=== PATIENT | male | born 1990 | race Caucasian/White ===

== ENCOUNTER 2018-05-19 22:57 | Emergency (ER) | payer BC ==
[~2018-05-19] VITALS: Ht 170.2 cm; Wt 73.2 kg
[~2018-05-19 22:57] MED LIST: ALEVE220 MG PO; BACTRIM DS TAB1 EACH PO; CRANBERRY200 MG PO; LEVSIN0.125 MG SUBLING; PERCOCET PO; PHENAZOPYRIDIN200 M2 PO; SENOKOT-S1 TA1 PO
[2018-05-19] MEDS ORDERED: HUMIRA10 MG/0.1 (23:08)
[2018-05-19] MEDS ORDERED: SULFACETAMIDE 115 M1 INTRAOCULR (23:30)
[2018-05-19] MEDS ORDERED: NORCO 7.5-3251 EACH PO (23:32)
[2018-05-19 23:49] VITALS: BP 125/78
== END 2018-05-19 23:50 | disposition home or self-care (01) ==
LOC: M.ERS 22:57
DX: S05.8X2A Other injuries of left eye and orbit, initial encounter (principal); W22.8XXA Striking against or struck by other objects, initial encounter; Y92.89 Other specified places as the place of occurrence of the external cause; Y93.89 Activity, other specified; Y99.8 Other external cause status